=== PATIENT | female | born 1965 | race Caucasian/White ===

== ENCOUNTER → 2017-09-01 12:13 | Outpatient (CLI) | payer MEDICARE ==
[2017-09-01 12:48] LABS: BASOPHILS 0.2 % (0-2); EOSINOPHILS 1.5 % (0-7); HEMATOCRIT 28.8 % (36.0-48.0); IMMATURE GRANULOCYTES 0.2 % (0-5); MCH 29.3 pg (26.0-34.0); MCHC 34.7 g/dL (31.0-37.0); MCV 84.5 fL (80.0-100.0); MEAN PLATELET VOLUME 8.1 fL (7.4-10.4); MONOCYTES 4.8 % (2-11); NEUTROPHILS 64.3 % (40-80); PLATELET COUNT 105 10x3/uL (130-400); RBC 3.41 10x6/uL (4.00-5.40); RDW 13.6 % (11.5-14.5); WBC 4.6 10x3/uL (4.8-10.8)
[2017-09-01 13:11] LABS: ALBUMIN 3.4 g/dL (3.4-5.0); BILIRUBIN - TOTAL 0.27 mg/dL (0.2-1.3); CALCIUM 8.6 mg/dL (8.5-10.1); CARBON DIOXIDE 21.1 mmol/L (21.0-32.0); CREATININE - SERUM 2.1 mg/dL (0.6-1.3); POTASSIUM - SERUM 5.1 mmol/L (3.5-5.1); PROTEIN - SERUM 6.6 g/dL (6.4-8.2)
== END | disposition home or self-care (01) ==
LOC: D.LAB 12:13
PROVIDERS: Internal Medicine Gastroenterology
DX: D64.9 Anemia, unspecified (principal)

== ENCOUNTER → 2018-04-25 08:15 | Outpatient (CLI) | payer MEDICARE ==
[2018-04-25 09:15] LABS: CREATININE - SERUM 1.9 mg/dL (0.6-1.3)
== END | disposition home or self-care (01) ==
LOC: D.CT 08:00
PROVIDERS: Internal Medicine Gastroenterology
DX: R93.8 Abnormal findings on diagnostic imaging of other specified body structures (principal); K31.89 Other diseases of stomach and duodenum; D64.9 Anemia, unspecified

== ENCOUNTER 2020-01-03 13:42 | Emergency (ER) | payer MEDICARE ==
[~2020-01-03] VITALS: Ht 157.5 cm; Wt 68.2 kg
[2020-01-03 13:50] VITALS: Ht 157.5 cm; Wt 68.2 kg
[2020-01-03] MEDS ORDERED: COREG12.5 MG PO (13:51)
[2020-01-03] MEDS ORDERED: LIPITOR40 MG PO (13:51)
[2020-01-03] MEDS ORDERED: GABAPENTIN300 MG (13:51)
[2020-01-03] MEDS ORDERED: PROZAC20 MG PO (13:51)
[2020-01-03] MEDS ORDERED: TRAZODONE HCL150 MG PO (13:52)
[2020-01-03] MEDS ORDERED: HYDRALAZINE HCL50 MG PO (13:52)
[2020-01-03] MEDS ORDERED: ISOSORBIDE DINI30 MG PO (13:53)
[2020-01-03] MEDS ORDERED: LEVEMIR FL100 UNIT/1 SC (13:53)
[2020-01-03] MEDS ORDERED: BAYER CHEWABLE81 MG PO (13:54)
[2020-01-03] MEDS ORDERED: FUROSEMIDE20 MG PO (13:54)
[2020-01-03] MEDS ORDERED: ZANAFLEX4 MG PO (13:54)
[2020-01-03 15:37] VITALS: BP 151/86
== END 2020-01-03 15:38 | disposition home or self-care (01) ==
LOC: D.ER 13:42
DX: S52.501A Unspecified fracture of the lower end of right radius, initial encounter for closed fracture (principal); W19.XXXA Unspecified fall, initial encounter; Y93.9 Activity, unspecified; Y92.9 Unspecified place or not applicable; I10 Essential (primary) hypertension; G62.9 Polyneuropathy, unspecified; Z89.511 Acquired absence of right leg below knee

== ENCOUNTER 2020-01-15 05:27 | Day surgery (SDC) | payer MEDICARE ==
[~2020-01-15] VITALS: Ht 157.5 cm; Wt 73.0 kg
--- NOTE | ~2020-01-15 | OP ---
PATIENT NAME: NIDA MATHUR MEDICAL RECORD: [id number] :63 LOCATION:D.M2 D.2110 ADMISSION DATE: SURGEON: DAYNE MAURO MD DATE OF OPERATION: 01/15/2020 PREOPERATIVE DIAGNOSES: End-stage renal disease and dependence on hemodialysis. OPERATION PERFORMED: 1. Laparoscopic implantation of peritoneal dialysis catheter. 2. Implantation of Artegraft vascular prosthetic loop graft in the left arm between the proximal brachial artery and proximal basilic vein. PRIMARY SURGEON: Dayne Mauro MD ANESTHESIA: General endotracheal per PLANISHING HAMMER OPERATOR. PREOPERATIVE NOTE: Ms. Mathur is a 54-year-old white male patient from [place], [place]. She was referred to me by Dr. Martell. She has end-stage renal disease and has begun dialysis with a tunneled catheter. She is to have a laparoscopic peritoneal dialysis catheter implantation today and also either a fistula or graft in her left arm. DESCRIPTION OF PROCEDURE: In supine position under general endotracheal anesthesia, a Gutierrez catheter was inserted and she was then prepped and draped in a sterile manner. I used a Merit size adult standard dual cuff flex neck classic coiled peritoneal dialysis catheter. I measured with the catheter on her abdomen from just below the pubis to a point just below the level of the umbilicus and made scott on the skin there as to where the various incisions and exit sites would be in the left side of the abdomen. A 5-mm Optiview XCEL port was placed in the left upper quadrant through a small incision and pneumoperitoneum was established with carbon dioxide. A 30-degree 5-mm scope was inserted and the abdomen viewed from within. There were no hernias. There was no omentum in the pelvis and no adhesions. I then made a transverse incision to the left of the midline about an inch below the level of the umbilicus and cut down to the anterior rectus sheath where I placed a pursestring suture of 0 Vicryl. I then infiltrated the rectus muscle with 0.25% Marcaine with epinephrine and then inserted an insertion device through the anterior rectus sheath and then with laparoscopic control made an intrarectus tunnel to direct the catheter downward into the pelvis. The catheter was then inserted through the insertion device and it was positioned nicely in the pelvis as planned. The deeper of the 2 Dacron felt cuffs was placed deep to the superficial rectus sheath and the pursestring suture tied. The catheter was then placed in a subcutaneous tunnel with an exit site in the left upper quadrant. The catheter was then attached to a transfer set and then 1000 cc of saline was run into the abdomen very rapidly and then the bag was placed on the floor and the fluid was siphoned out also very rapidly without any apparent obstruction to flow. The catheter was subsequently heparin locked and capped. The laparoscopic port was removed. The wounds were infiltrated with 0.25% Marcaine and closed with interrupted inverted 3-0 Vicryl and running intracuticular 4-0 Stratafix and Dermabond glue. The 2 incisions were dressed with Maxorb Ag, Tegaderm, and Cavilon skin prep. The catheter exit site was dressed with a chlorhexidine Biopatch and additional dry sterile dressings as per custom. The patient was then totally reprepped and redraped for the AV fistula portion OPERATIVE REPORT [id number] NIDA MATHUR of the procedure. I applied nitroglycerin paste to the patient's arm and placed a Ceres drain as a proximal venous tourniquet around the upper left arm and then performed ultrasound and found there really were no peripheral veins suitable for creating a fistula, even a brachiobasilic fistula was not likely to be successful and I decided to go ahead in with a graft. I made a longitudinal incision over the vessels in the upper arm just out from the axilla and exposed the brachial artery and the basilic vein and controlled them with Silastic loops. A few Hemoclips were used also as needed for hemostasis. I chose a 6-mm diameter Artegraft, bevelled one in. The graft was flushed as per charge master specialist's directions and it was then anastomosed end-to-side to the artery with running 6-0 Prolene. A counter incision was made just above the antecubital space. The graft was placed circuitous superficial subcutaneous tunnel and brought back up to the axillary incision where it was shortened and bevelled and the end anastomosed to the side of the basilic vein. No systemic heparinization was used, but the vessels were flushed locally with dilute heparin and saline. When the occluding clamps and loops were released, excellent flow developed immediately within the graft. Hemostasis was excellent with the use of a better fibrillar on the suture lines. The wounds were irrigated with Ancef and gentamicin solution. Due to some persistent bleeding around the distal incision, the patient was given 20 mcg of DDAVP systemically and good hemostasis was obtained after a period of gentle dry gauze compression. The wounds were closed with interrupted inverted 3-0 Vicryl and running intracuticular 4-0 Stratafix and Dermabond glue. They were dressed with Maxorb Ag, Tegaderm, and Cavilon skin prep. The patient was then awakened and in stable condition returned to the recovery room. Estimated blood loss of 50 cc, was unreplaced. Sponges, instruments, and needles were accounted for. No drain was used and no surgical specimen was submitted for histopathology. I plan to keep the patient in overnight observation and obtain OT and physical therapy consultations as well as involving case management. Because of the patient's special needs. I believe that she is going especially have some difficulties with routine activities of daily living because she has a broken right wrist and has a cast and now sore left arm. Also, she is a BK amputee. She does walk with a prosthesis, but she has had several falls, breaking her arm several times and I consider her a high risk for falling at this point. TRANSINT:[id number] Voice Confirmation ID: [id number] DOCUMENT ID: [id number] cc: DAYNE Zamudio MD CC: ADILIA MCLAUGHLIN RN and KOLBY MARTELL MD [id number] DICTATION DATE: 01/15/20 1233 MARKET RESEARCH INTERVIEWER: 01/15/20 1643 [facility] [address] [place] [address]
[~2020-01-15 05:27] MED LIST: BAYER CHEWABLE81 MG PO; COREG12.5 MG PO; FUROSEMIDE20 MG PO; GABAPENTIN300 MG; HYDRALAZINE HCL50 MG PO; ISOSORBIDE DINI30 MG PO; LEVEMIR FL100 UNIT/1 SC; LIPITOR40 MG PO; PROZAC20 MG PO; TRAZODONE HCL150 MG PO; ZANAFLEX4 MG PO
[2020-01-15 06:02] LABS: ANION GAP 10.4 mmol/L (8-16); CALCIUM 8.1 mg/dL (8.5-10.1); CARBON DIOXIDE 29.5 mmol/L (21.0-32.0); CREATININE - SERUM 3.3 mg/dL (0.6-1.3); INR 1.01 (0.85-1.17); POTASSIUM - SERUM 4.9 mmol/L (3.5-5.1); PROTIME 13.2 SECONDS (11.6-15.0)
[2020-01-15 06:16] LABS: BASOPHILS 0.4 % (0-2); EOSINOPHILS 2.3 % (0-7); HEMATOCRIT 32.4 % (36.0-48.0); IMMATURE GRANULOCYTES 0.2 % (0-5); LYMPHOCYTES 39.2 % (15-50); MCH 31.9 pg (26.0-34.0); MCV 93.9 fL (80.0-100.0); MEAN PLATELET VOLUME 8.2 fL (7.4-10.4); MONOCYTES 5.6 % (2-11); NEUTROPHILS 52.3 % (40-80); RBC 3.45 10x6/uL (4.00-5.40); RDW 13.2 % (11.5-14.5); WBC 4.8 10x3/uL (4.8-10.8)
[2020-01-15] MEDS ORDERED: PAXIL20 MG PO (06:19)
[2020-01-15] MEDS ORDERED: TYLENOL W/CODEI1 TAB PO (06:20)
[2020-01-15] MEDS ORDERED: CRESTOR40 MG PO (06:20)
[2020-01-15 06:34] LABS: PLATELET COUNT 130 10x3/uL (130-400)
[2020-01-15 06:51] VITALS: BMI 27.5
[2020-01-15 07:48] LABS: HCG SERUM NEGATIVE (NEGATIVE)
--- NOTE | 2020-01-15 12:20 | NUR ---
1202 - PT'S HEARING DEVICE RETURNED TO HER, PLACED BY PT
--- NOTE | 2020-01-15 12:42 | NUR ---
AT PLANNED EXIT TIME FROM PACU, PT IN TEARS, SAID HER PAIN HAD BECOME VERY BAD. MAINTAINED PT IN PACU, MEDICATED PER ANESTHESIA ORDERS.
--- NOTE | 2020-01-15 12:53 | NUR ---
PT STATES HER PAIN HAS IMPROVED. PROCEEDING TO TRANSFER TO [facility].
[2020-01-15 13:11] VITALS: BP 161/72
--- NOTE | 2020-01-15 13:13 | NUR ---
RECEIVED PATIENT TO ROOM 2111 VIA [facility], PATIENT ABLE TO ASSIST TO TRANSFER SELF ONTO BED FROM [facility]. VS STABLE, 161/72, 76, 18, 99% RA, 97.6. DRESSING CLEAN DRY AND INTACT TO LEFT UPPER ARM AND ABD. CALL LIGHT WITHIN REACH. PATIENT DENIES BEING HUNGRY AT THIS TIME. ICE CHIPS PROVIDED.
[2020-01-15 14:05] VITALS: BP 161/76
--- NOTE | 2020-01-15 15:39 | MORECARE ---
CASE MANAGEMENT DISCHARGE SUMMARY PATIENT: NIDA RIVER UNIT: [id number] ADM DATE: 01/15/20 AGE: 54 : 63 SEX: F ROOM/BED: D.9674 AUTHOR: IRVIN HENDERSON PHYSICIAN: REFERRING PHYSICIAN: DAYNE MAURO MD DATE OF SERVICE: 01/15/20 Discharge Plan Patient Name: NIDA RIVER Facility: [facility]:[place] : 1965 Planned Disposition: Home Anticipated Discharge Date: 01/16/20 Discharge Date: Expected LOS: 1 Initial Reviewer: [email or web address] Initial Review Date: 01/15/2020 Generated: 01/15/20 4:38 pm Comments DCP- Discharge Planning Updated by [email or web address]: Peace Samuel on 01/15/20 2:[address] Patient Name: NIDA RIVER Admission Status: Elective Accout number: [id number] Admission Date: 01-15-2020 : 1965 Admission Diagnosis: Attending: DAYNE MAURO Current LOS: 1 Anticipated DC Date: 01-16-2020 Planned Disposition: Home Primary Insurance: [facility] MEDICARE SOLUTIONS Discharge Planning Comments: CM met with patient to complete initial dc planning assessment. CM educated patient on the CM role and verbal consent given by patient to complete assessment. Patient lives at home with son and DIL. At discharge patient plans to return and feels this is a safe discharge. CM discussed availability of home health, rehab services, and medical equipment. Patient denied known discharge needs at this time. I informed her that she would need to use her wheelchair at home until she can safely ambulate. She states that she already has a wheelchair and her son or DIL will wheel her around with the W/C. She also states that her DIL prepares her meals for her. She declines needs at this time. No needs identified. CM will continue to follow and will assist as needed with dc plans/needs. Outpatient Clerk: Peace Samuel DCPIA - Discharge Planning Initial Assessment Updated by [id number]: Peace Samuel on 01/15/20 3:35 pm * Is the patient Alert and Oriented? Yes * How many steps to enter\exit or inside your home? 3/0 * PCP Dr. Oro * Pharmacy [facility] on [facility] in [place] * Preadmission Environment Home with Family * ADLs Independent * Equipment Cane Walker Wheelchair * List name and contact numbers for known caregivers / representatives who currently or will assist patient after discharge: Evreardo simmons - [phone] Mirtha PAL * Verbal permission to speak to the caregivers and representatives has been obtained from the patient. Yes * Community resources currently utilized Other * Please name any agencies selected above. [facility] in [place] MWF at 10am * Additional services required to return to the preadmission environment? No * Can the patient safely return to the preadmission environment? Yes * Has this patient been hospitalized within the prior 30 days at any hospital? No Patient Name: NIDA RIVER Page [id number] at 1539 All edits/amendments must be made on the electronic document DICTATION DATE: 01/15/201537 EMERGENCY DEPARTMENT COORDINATOR: YUE 01/15/201537 RPT#: [id number] DC DATE: STATUS: REG [facility] [address] [place] [address] END OF REPORT
--- NOTE | 2020-01-15 16:00 | NUR ---
PATIENT BP DOWN TO 107/48. CALLED AND SPOKE WITH RENAL PATENT SEARCHERChiki GARLAND AND RECEIVED A NEW ORDER FOR MIDODRINE 10MG PO Q6 PRN FOR BP<100/50. ORDERS ENTERED. PULLED MED AND WENT TO ADMINISTER MEDICATION AND NOW BP 125/55. PATIENT IS HAVING SLIGHT LABILE BLOOD PRESSURES. MIDODRINE HELD AT THIS TIME.
[2020-01-15 16:47] VITALS: BP 107/48
--- NOTE | 2020-01-15 18:00 | NUR ---
PATIENT RESTING IN BED, PM MEAL CONSUMED. PATIENT REFUSED 1700 DOSE OF COREG DUE TO LABILE BP AND AFRAID BP WOULD DROP. CALL LIGHT WITHIN REACH. NO DISTRESS. DENIES NEEDS AT THIS TIME.
--- NOTE | 2020-01-15 19:00 | NUR ---
AWAKE AND ALERT PT CO PAIN AT FISTULA SITE BED LOW AND LOCKED CALL LIGHT IS WITH PT
[2020-01-15 19:48] VITALS: BP 169/72
[2020-01-16 00:12] VITALS: BP 186/81
--- NOTE | 2020-01-16 02:38 | NUR ---
I have reviewed this patient and I concur with the Shift Assessment completed by the Licensed Practical Nurse today this shift.
[2020-01-16 04:55] VITALS: BP 171/68
--- NOTE | 2020-01-16 07:10 | NUR ---
REPORT RECEIVED FROM SNUFF BOX FINISHER AND PATIENT CARE ASSUMED. PATIENT LAYING IN BED AWAKE, ALERT AND ORIENTED X 4. PATIENT DENIES ANY NEEDS OR PAIN . PATIENT IS STABLE AND VSS. WILL CONTINUE WITH PLAN OF CARE. SR UPX 2 BED IN LOW POSITION AND CALL LIGHT IN REACH.
--- NOTE | 2020-01-16 08:00 | NUR ---
RECIEVED IN REPORT THAT PATIENT TO GOING TO DIALYSIS TODAY THEN BE DCD TO HOME.
--- NOTE | 2020-01-16 08:53 | NUR ---
PATIENT IS STABLE AND VSS. PATIENT COMPLAINS OF PAIN TO RT UPPER ARM AT A 7. MEDICATED PATIENT PER MAR WITH ULTRAM PO. GOLDEN CATHETER DCD WITHOUT DIFFICULTY. WILL CONTINUE WITH PLAN OF CARE. ASSESSMENT COMPLETED. SR UP X 2 BED IN LOW POSITION AND CALL LIGHT IN REACH.
[2020-01-16 09:53] VITALS: BP 164/66
[2020-01-16 12:00] VITALS: BMI 29.4
--- NOTE | 2020-01-16 13:00 | NUR ---
CALLED DR MAURO OFFICE. SPOKE WITH CALLI. DR MAURO NOT AVAILABLE. CALLI STATED THAT SHE WOULD PAGE DR MAURO AND CALL ME. NEED TO KNOW IF HE ROUNDING OR WILL GIVE VERBAL DC ORDER. ALSO CALLED DIALYSIS TO INQUIRE ABOUT WHAT TIME SHE WILL BE DIALYZISING. INFORMED BY ALINE THAT PATIENT NOT ON DIALYSIS SCHEDULE. CALLED AND SPOKE WITH [facility]ES WITH NEPHROLOGY. INFORMED HER OF NO ORDERS FOR DIALYSIS . SHE STATES THAT SHE WILL PUT IN ORDERS.
[2020-01-16 13:33] VITALS: BP 105/69
--- NOTE | 2020-01-16 15:00 | NUR ---
CHAMP WITH DIALYSIS CALLED BACK. STATES THAT SHE HAS NOT PUT IN DIALYSIS ORDERS YET AND THAT SHE CALLED DIALYSIS AND IT WILL BE LATER TONIGHT BEFORE CHAIR AVAILABLE. CHAMP STATES THAT PATIENT CAN GO TO DIALYSIS TOMORROW ON [facility] AT 12 NOON. PATIENT AGREED. HAVE NOT HEARD BACK FROM DR MAURO. CALLED AND LEFT MESSAGE ON CELL PHONE.
--- NOTE | 2020-01-16 15:45 | NUR ---
HAVE NOT HEARD BACK FROM DR MAURO. CALLED DR MAURO OFFICE AGAIN.PAUL STATE THAT HE IS IN SURGERY AND WILL CALL HIM. CALLI CALLS BACK AD STATES THAT DR MAURO NO LONGER IN SURGERY AT OTHER HOSPITAL AND HAS LEFT BUILDING AND THAT SHE IS UNABLE TO REACH HIM. CALLED DR MAURO PHONE AGAIN. HE GAVE VERAL ORDER FOR DC AND WANTS TO SEE PATIENT IN OFFICE IN 10 DAYS.
[2020-01-16 15:50] VITALS: Ht 157.5 cm; Wt 73.0 kg
== END 2020-01-16 17:05 | disposition home or self-care (01) ==
LOC: D.M2 05:27 → D.OPS 05:27 → D.M2 12:31 → D.OPS 01-16 17:05
PROVIDERS: Anesthesiology; ATTEND Surgery
DX: E11.22 Type 2 diabetes mellitus with diabetic chronic kidney disease (principal); N18.6 End stage renal disease; Z99.2 Dependence on renal dialysis; K21.9 Gastro-esophageal reflux disease without esophagitis; Z79.4 Long term (current) use of insulin

== ENCOUNTER → 2020-01-29 21:03 | Outpatient (CLI) | payer MEDICARE ==
[2020-01-16 15:50] VITALS: BMI 29.4
[~2020-01-29 21:03] MED LIST changes: +CRESTOR40 MG PO; -GABAPENTIN300 MG; +GABAPENTIN300 MG PO; +PAXIL20 MG PO; +TYLENOL W/CODEI1 TAB PO
== END | disposition home or self-care (01) ==
LOC: D.LABREF 21:03
PROVIDERS: ATTEND Surgery
DX: N18.6 End stage renal disease (principal); Z99.2 Dependence on renal dialysis

== ENCOUNTER 2020-01-31 09:55 | Day surgery (SDC) | payer MEDICARE ==
[~2020-01-31] VITALS: Ht 157.5 cm; Wt 68.5 kg
--- NOTE | ~2020-01-31 | OP ---
PATIENT NAME: NIDA MATHUR MEDICAL RECORD: [id number] :63 LOCATION:D.OPS ADMISSION DATE: SURGEON: DAYNE MAURO MD DATE OF OPERATION: 01/31/2020 REFERRED BY: Kolby Martell MD PRIMARY CARE PHYSICIAN: Carmen Oro MD PREOPERATIVE DIAGNOSES: End-stage renal disease and dependence on hemodialysis and postoperative peritoneal dialysis catheter infection with tunnel abscess. POSTOPERATIVE DIAGNOSES: End-stage renal disease and dependence on hemodialysis and postoperative peritoneal dialysis catheter infection with tunnel abscess. OPERATION PERFORMED: Removal of peritoneal dialysis catheter. SURGEON: Dayne Mauro MD ANESTHESIA: General with LMA per FACILITY PLANNER. PREOPERATIVE NOTE: Ms. Mathur is a 54-year-old white female with end-stage renal disease. She lives in [place] and is dialyzing there with a right IJV TDC. I had operated her on 01/15/2020 and implanted a loop Artegraft in her left arm and also laparoscopically implanted a peritoneal dialysis catheter. Subsequently, when seen postop in my office, her arm was healing well without evidence of infection, but she had pus or purulent fluid dripping from the catheter exit site, which was quite swollen, tender and reddened. Swabs of this drainage have grown Staphylococcus aureus. Antibiotic sensitivity is pending still at this time. She has been now on vancomycin at dialysis for several days and the redness and swelling around the catheter exit site have improved, but she still has voluminous purulent drainage. She does not have peritonitis. She is brought to the operating room with hopes of possibly being able to drain a tunnel abscess and shave a superficial cuff and possibly save the catheter, though it is also very possible this catheter may just have to be removed because of the extents of the infection. DESCRIPTION OF PROCEDURE: Prepped and draped in sterile manner. I made an incision from the exit site directed medially and inferiorly over the palpable catheter. I dissected the catheter from the surrounding tissues and dissected downward until I reached the superficial cuff. The abscess continued on deep to that and I extended the incision. I then reopened the transverse incision and exposed the cavity just anterior to the anterior rectus sheath. The abscess extended to that point. I removed the pursestring suture from the anterior rectus sheath and popped out the deep Dacron cuff, which was purulent and infected as well. The entire catheter was then removed. The wounds were irrigated then with Ancef and gentamicin solution and hemostasis obtained with electrocautery. The wounds were closed with widely spaced sloedad and I placed Telfa akash between the soledad using a total of 5 akash. Over this, a sterile dry dressing was applied. The catheter was discarded and no specimen was sent for histopathology or for microbiology. PLAN: I plan for the patient to go home today and be followed there by home health. We will ask them to see her daily and change her dressing. Tomorrow, they are to remove all 5 Telfa pledgets or akash and document that they have OPERATIVE REPORT [id number] NIDA MATHUR removed all 5. I will be seeing her back in my office in a week to 10 days. Meanwhile, the dressings to be changed daily and the wound cleaned with chlorhexidine solution. She is to continue all of her same medications, diet and activities and dialysis schedule and for now, continue intravenous vancomycin at dialysis sessions. TRANSINT:[id number] Voice Confirmation ID: [id number] DOCUMENT ID: [id number] cc: [place] DAYNE Drew MD CC: ADILIA MCLAUGHLIN RN, KOLBY MARTELL MD and CARMEN ORO [id number] DICTATION DATE: 01/31/20 1451 HEAD HOUSEKEEPER: 01/31/20 1555 [facility] 01/31/20 [facility] [address] [place] [address]
[2020-01-31 10:37] LABS: HEMATOCRIT 26.2 % (36.0-48.0); HEMOGLOBIN 8.9 g/dL (12-16); LYMPHOCYTES 19.9 % (15-50); MCV 94.2 fL (80.0-100.0); MEAN PLATELET VOLUME 7.3 fL (7.4-10.4); NEUTROPHILS 75.9 % (40-80); RBC 2.78 10x6/uL (4.00-5.40); RDW 13.1 % (11.5-14.5)
[2020-01-31 10:40] LABS: PLATELET COUNT 160 10x3/uL (130-400)
[2020-01-31 10:46] LABS: ANION GAP 8.2 mmol/L (8-16); CALCIUM 7.9 mg/dL (8.5-10.1); CARBON DIOXIDE 32.9 mmol/L (21.0-32.0); CREATININE - SERUM 3.9 mg/dL (0.6-1.3); POTASSIUM - SERUM 5.1 mmol/L (3.5-5.1)
[2020-01-31 10:53] LABS: INR 1.03 (0.85-1.17); PROTIME 13.4 SECONDS (11.6-15.0)
[2020-01-31 11:12] VITALS: Ht 157.5 cm; Wt 68.5 kg
== END 2020-01-31 16:10 | disposition home or self-care (01) ==
LOC: D.OPS 09:55
PROVIDERS: Surgery; ATTEND Internal Medicine Nephrology
DX: N18.6 End stage renal disease (principal); Z99.2 Dependence on renal dialysis; T82.7XXA Infection and inflammatory reaction due to other cardiac and vascular devices, implants and grafts, initial encounter

== ENCOUNTER 2020-02-26 05:59 | Day surgery (SDC) | payer MEDICARE ==
[~2020-02-26] VITALS: Ht 157.5 cm; Wt 68.5 kg
[2020-02-26 06:21] LABS: BASOPHILS 0.3 % (0-2); EOSINOPHILS 2.6 % (0-7); HEMATOCRIT 31.2 % (36.0-48.0); HEMOGLOBIN 9.9 g/dL (12-16); MCH 31.5 pg (26.0-34.0); MCHC 31.7 g/dL (31.0-37.0); MCV 99.4 fL (80.0-100.0); MEAN PLATELET VOLUME 7.9 fL (7.4-10.4); MONOCYTES 5.2 % (2-11); NEUTROPHILS 47.9 % (40-80); RBC 3.14 10x6/uL (4.00-5.40); RDW 14.8 % (11.5-14.5); WBC 3.9 10x3/uL (4.8-10.8)
[2020-02-26 06:30] LABS: PLATELET COUNT 109 10x3/uL (130-400)
[2020-02-26 06:36] LABS: ANION GAP 8.6 mmol/L (8-16); CARBON DIOXIDE 31.2 mmol/L (21.0-32.0); CREATININE - SERUM 3.5 mg/dL (0.6-1.3); POTASSIUM - SERUM 5.8 mmol/L (3.5-5.1)
[2020-02-26 06:48] LABS: INR 0.96 (0.85-1.17); PROTIME 12.8 SECONDS (11.6-15.0)
[2020-02-26] MEDS ORDERED: PLAVIX75 MG PO (07:37)
[2020-02-26] MEDS ORDERED: BENTYL 20 MG TA20 MG PO (07:38)
[2020-02-26 07:46] VITALS: Ht 157.5 cm; Wt 68.5 kg
--- NOTE | 2020-02-26 13:44 | NUR ---
1326 PT'S RIDE HERE RELEASED IN WC.
--- NOTE | 2020-02-28 16:49 | OP ---
PATIENT NAME: NIDA RIVER MEDICAL RECORD: [id number] :63 LOCATION:PingOPS ADMISSION DATE: SURGEON: DAYNE MAURO MD DATE OF OPERATION: 02/26/2020 REFERRED BY: Kolby Martell MD PREOPERATIVE DIAGNOSES: End-stage renal disease and dependence on hemodialysis and ischemic steal syndrome complication of proximal left arm brachiobasilic loop arteriovenous graft. ADDITIONAL DIAGNOSES: Peripheral arterial disease and insulin-dependent diabetes. POSTOPERATIVE DIAGNOSES: End-stage renal disease and dependence on hemodialysis and ischemic steal syndrome complication of proximal left arm brachiobasilic loop arteriovenous graft. OPERATION PERFORMED: Ultrasound-guided access and performance of a fistulogram with then angioplasty of stenosis of the arterial anastomosis and additionally placement of an 8 mm diameter x 5 cm long Viabahn PTFE covered endovascular stent in the juxta-anastomotic segment of the graft and then open Jasso banding of the access with numerous 2-0 Prolene ligatures tied over the stented segment of Artegraft with an indwelling endovascular angioplasty balloon fully inflated to nominal pressures using a 5-mm diameter balloon and also a 4 mm diameter balloon and selective brachial arteriograms repeated throughout the procedure. PREOPERATIVE NOTE: This diabetic patient with end-stage renal disease, has recently had an Artegraft PTFE loop placed in the left upper arm between the proximal brachial artery and proximal basilic vein and has developed quite severe steal syndrome. When her blood pressure is reduced during dialysis with her tunneled dialysis catheter, she experiences pain in her left hand. When she is dialyzed or there are attempts to dialyze her with her AV graft, she suffers excruciating pain in the left hand. She does not have gangrene or ulceration or severe discoloration, though she does have reduced capillary filling and the left hand is cool relative to the right. She is brought to the operating room at this time with plans to do a fistulogram and a Jasso banding. DESCRIPTION OF PROCEDURE: Under general anesthesia, the patient was prepped and draped in sterile manner and the arterial limb of the graft was accessed with ultrasound guidance with micropuncture technique and a guidewire advanced proximally across the arterial anastomosis and up into the proximal axillary artery. A catheter was inserted over the wire and contrast injection demonstrates free flow of contrast in the proximal artery into the AV graft and back to the basilic vein and proximally to the right ventricle. There were no lesions of the loop graft itself other than an arterial anastomotic stenosis and even then there was really no visible flow in the brachial artery distal to the anastomosis. I dilated the anastomotic stricture with a 5 mm diameter angioplasty balloon and repeated the contrast study and this revealed increased diameter of the arterial anastomosis. I then did additional contrast injections with and without the loop graft occluded and demonstrated that there was essentially no flow into the forearm with the graft open and abnormal, but still much better flow into the forearm with the graft occluded. I made an incision over the JA segment and exposed it and controlled it with a OPERATIVE REPORT [id number] NIDA RIVER Silastic loop. I then placed 8 mm diameter x 5 cm diameter Viabahn PTFE covered endovascular stent graft into the JA segment. I then expanded the stent with an 8-mm diameter angioplasty balloon and then tied multiple 2-0 Prolene ligatures around the JA segment over the stent with the 5-mm balloon in place. This did not cause any angiographic improvement so far restoring flow distally. I then repeated the procedure with additional 2-0 ligatures tied over a 4 mm diameter balloon again with disappointing results. Even though the balloon was not inflated to its nominal diameters and lastly, I placed a 2-0 Prolene ligature over the proximal end of the Viabahn graft without an endovascular balloon in place and attempting only to be sure that there was some lumen and that the palpable thrill was not obliterated. After that last ligature, repeated contrast injections revealed dramatic improvement in the flow in the brachial artery distal to the arterial anastomosis, but still with very good flow in the AV graft and into the venous outflow. Arterial inflow was dramatically improved with and without occlusion of the graft in the forearm also. Handheld Doppler examination demonstrates pulsatile flow in the brachial artery at the antecubital space and in the radial artery at the wrist and also in the palmar arch. These arteries certainly, the radial and the palmar arch are not normal and was dampened in these vessels and monophasic. This was consistent with severe peripheral arterial disease associated with her diabetes as well as renal failure. The 8-Tajik sheath was removed and the puncture site controlled with a [id number] 4-0 Prolene suture and a period of light direct pressure. The incision in the upper arm was irrigated with Ancef/gentamicin solution and then infiltrated with 0.25% Marcaine with epinephrine, then closed with interrupted inverted 3-0 Vicryl and then with a running intracuticular 4-0 Monocryl or Stratafix rather and the incision was sealed with Dermabond glue and dressed with Maxorb Ag, Tegaderm, and Cavilon skin prep. The puncture site was dressed with Ultrafoam, Tegaderm, and Cavilon skin prep. The patient awakened and taken to the recovery room with good Doppler flow in the brachial artery and in the radial and palmar arch and also with preservation of continuous pulsatile flow in the AV graft in the upper arm. PLAN: She will go home today and continue her same diet, medications and dialysis schedule and activities. No new prescriptions are issued today. I would recommend that she use Tylenol and perhaps local ice in the incisional area for postoperative pain or discomfort. She is to continue all of her same medications, which includes Plavix and return to see me in my office next week. TRANSINT:[id number] Voice Confirmation ID: [id number] DOCUMENT ID: [id number] cc: [facility] DAYNE MAURO MD at 1649 CC: KOLBY MARTELL MD [id number] DICTATION DATE: 02/26/20 1135 CONSUMER SALES REPRESENTATIVE: 02/26/20 1618 [facility] 02/26/[address] [facility] [address] [place] [address]
== END 2020-02-26 13:26 | disposition home or self-care (01) ==
LOC: D.OPS 05:59
PROVIDERS: Surgery; ATTEND Internal Medicine Nephrology
DX: E11.22 Type 2 diabetes mellitus with diabetic chronic kidney disease (principal); N18.6 End stage renal disease; Z79.4 Long term (current) use of insulin; T82.898A Other specified complication of vascular prosthetic devices, implants and grafts, initial encounter; Z99.2 Dependence on renal dialysis

== ENCOUNTER 2020-03-25 07:47 | Day surgery (SDC) | payer MEDICARE ==
[~2020-03-25] VITALS: Ht 157.5 cm; Wt 72.6 kg
[~2020-03-25 07:47] MED LIST changes: +BENTYL 20 MG TA20 MG PO; +PLAVIX75 MG PO
[2020-03-25 08:13] LABS: BASOPHILS 0.8 % (0-2); EOSINOPHILS 2.8 % (0-7); HEMATOCRIT 29.9 % (36.0-48.0); LYMPHOCYTES 43.4 % (15-50); MCH 31.6 pg (26.0-34.0); MCHC 33.4 g/dL (31.0-37.0); MCV 94.6 fL (80.0-100.0); MEAN PLATELET VOLUME 8.5 fL (7.4-10.4); MONOCYTES 5.9 % (2-11); NEUTROPHILS 47.1 % (40-80); PLATELET COUNT 91 10x3/uL (130-400); RBC 3.16 10x6/uL (4.00-5.40); RDW 14.6 % (11.5-14.5); WBC 3.9 10x3/uL (4.8-10.8)
[2020-03-25 08:37] LABS: ANION GAP 8.2 mmol/L (8-16); CALCIUM 8.1 mg/dL (8.5-10.1); CARBON DIOXIDE 30.8 mmol/L (21.0-32.0)
[2020-03-25 08:40] LABS: PLATELET ESTIMATE DECREASED
[2020-03-25 08:42] LABS: INR 1.05 (0.85-1.17); PROTIME 13.6 SECONDS (11.6-15.0)
[2020-03-25 08:43] LABS: APTT 29.6 SECONDS (22.8-39.4)
[2020-03-25] MEDS ORDERED: LIPITOR40 MG PO (09:25)
[2020-03-25 09:29] VITALS: Ht 157.5 cm; Wt 72.6 kg
--- NOTE | 2020-03-26 10:35 | OP ---
PATIENT NAME: NIDA RIVER MEDICAL RECORD: [id number] :63 LOCATION:D.OPS ADMISSION DATE: SURGEON: DAYNE MAURO MD DATE OF OPERATION: 03/25/2020 REQUESTING PHYSICIAN: Heike Grant MD PREOPERATIVE DIAGNOSIS: Inadequate flow in the left arm brachiobasilic loop AV graft secondary to recent CHOI banding. ADDITIONAL DIAGNOSES: End-stage renal disease, dependence on hemodialysis, steal syndrome, and peripheral arterial disease associated with diabetes. OPERATION PERFORMED: Percutaneous ultrasound-guided access and performance of a fistulogram with balloon angioplasty of stenotic juxta-anastomotic arterial limb segment of the graft and balloon angioplasty of venous anastomotic stenosis. SURGEON: Dayne Mauro MD ANESTHESIA: General with LMA per HEALTH PROMOTION EDUCATOR. PREOPERATIVE NOTE: This lady with end-stage renal disease and diabetes has severe peripheral vascular disease. She is presently dialyzing with a right IJV TDC, though she has a left arm proximal brachial artery to proximal basilic vein loop Artegraft. Unfortunately, she had severe steal syndrome symptoms after that was installed and I have done a CHOI banding, placing 2-0 Prolene ligatures over the JA segment after deploying a Viabahn stent graft and then with a 4 mm angioplasty balloon within it. The patient's steal has been relieved but now, there is inadequate flow in her graft to dialyze her, although her graft is not thrombosed. She is brought to the OR at this time to hopefully increase flow in the graft by angioplastying the banded segment. DESCRIPTION OF PROCEDURE: Under general anesthesia in supine position, the patient was prepped and draped in sterile manner. The fistula was examined with duplex ultrasound and I noted a stenosis near the arterial anastomosis associated with the previously placed stent and also I thought there was a stenosis at the venous anastomosis. I accessed the arterial limb in a retrograde direction with micropuncture technique and with real-time ultrasound guidance. Ultrasound images were documented as hard copy paper printout and placed in the patient's chart for long-term documentation. A micropuncture catheter was inserted and a fistulogram performed, which revealed a significant venous anastomotic stenosis of about 75% and severe stenosis of the banded arterial segment as one might expect. I placed a 7-Azerbaijani introducer sheath and then over a 0.035 Glidewire dilated the arterial JA segmental stenosis with a 5 mm diameter angioplasty balloon. Repeated contrast injections revealed increased flow in the graft. A second 7-Azerbaijani introducer was placed directed proximally towards the venous anastomosis and over a 0.035 Glidewire, I used an 8 mm diameter angioplasty balloon to dilate that venous anastomotic stenosis. The contrast injection subsequently demonstrated about a 20% persistent stenosis in that area. The introducer sheaths were removed and hemostasis at each site obtained with a pursestring 4-0 Prolene sutures and gentle direct pressure. Sterile dressings were applied and the patient was awakened and in stable condition with improved pulse and thrill over her AV graft taken to the recovery room. Blood loss was OPERATIVE REPORT [id number] NIDA RIVER. Sponges, instruments, and needles were accounted for. No drain was used and no surgical specimen was submitted for histopathology. PLAN: The patient will go home today and she will go back to the dialysis unit in [place] tomorrow for her usual treatment. We will get in touch with them early in the morning and the patient also has been instructed to tell her dialysis nurses that they are to try to dialyze her tomorrow with her left arm graft. I would ask also that they let me know if there are any significant changes in venous or arterial pressures or access flow. If the patient needs further increase in flow in the graft, I would plan to definitely do that as an open procedure and remove one or more of the Prolene ligatures. If the patient has evidence of worsening of venous anastomotic stenosis, then I think that should be dilated promptly, probably at [facility] and probably also stent it. If the graft thrombosis, that declot revision procedure probably should be done with her under anesthesia here at [place]. NTS:[id number] Voice Confirmation ID: [id number] DOCUMENT ID: [id number] cc: [place] [facility] DAYNE MAURO MD at 1035 CC: HEIKE GRANT MD [id number] DICTATION DATE: 03/25/20 1650 MARINE ERECTOR: 03/26/20 0124 [facility] 03/25/20 [facility] [address] [place] [address]
== END 2020-03-25 16:45 | disposition home or self-care (01) ==
LOC: D.OPS 07:47
PROVIDERS: Anesthesiology; ATTEND Internal Medicine
DX: E11.22 Type 2 diabetes mellitus with diabetic chronic kidney disease (principal); N18.6 End stage renal disease; Z99.2 Dependence on renal dialysis; T82.898A Other specified complication of vascular prosthetic devices, implants and grafts, initial encounter; I73.9 Peripheral vascular disease, unspecified